=== PATIENT | male | born 1985 | race African-American/Black ===

== ENCOUNTER 2016-04-25 11:00 | Emergency (ER) | payer MEDICAID ==
[~2016-04-25] VITALS: Ht 180.3 cm; Wt 72.6 kg
[2016-04-25 11:40] LABS: Basophils # (auto) 0 uL; Basophils % (auto) 0.1 % (0.0-2.0); Eosinophils # (auto) 0 uL; Hematocrit 48.5 % (41.0-53.0); Lymphocytes # (auto) 0.4 uL; Lymphocytes % (auto) 3.5 % (10.0-50.0); Mean Corpuscular Hgb Conc. 32.9 g/dL (32.0-36.0); Mean Corpuscular Volume 91.1 fL (80.0-100.0); Mean Platelet Volume 7.9 fL (7.4-10.4); Monocytes # (auto) 0.2 uL; Neutrophils # (auto) 11.1 uL; Neutrophils % (auto) 94.4 % (37.0-80.0); Platelet Count (auto) 306 10^3/uL (140-450); Red Cell Distribution Width 14.1 % (11.6-16.0); White Blood Cell 11.7 10^3/uL (4.4-10.8)
[2016-04-25] MEDS ORDERED: MORPHINE SULFATE 4 MG/ML SYRG IV ONE (11:45)
[2016-04-25] MEDS ORDERED: ONDANSETRON HCL 4 MG/2 ML VIAL IV ONE (11:45)
[2016-04-25] MEDS ORDERED: LEVETIRACETAM INJ 1,000 MG in SODIUM CHL 0.9% 100 ML IV ONE (11:45)
[2016-04-25 12:07] LABS: Albumin 4.3 g/dL (3.4-5.0); Bilirubin, Total 1.1 mg/dL (0.2-1.0); Calcium 9.3 mg/dL (8.5-10.1); Potassium 4.4 mmol/L (3.5-5.1); Total Protein 8.4 g/dL (6.4-8.2)
[2016-04-25 14:32] VITALS: BP 105/69
== END 2016-04-25 14:43 | disposition home or self-care (01) ==
LOC: EDBD 11:00 → ER 11:08
DX: G40.909 Epilepsy, unspecified, not intractable, without status epilepticus (principal); R51 Headache; R42 Dizziness and giddiness; R53.1 Weakness; F12.10 Cannabis abuse, uncomplicated
CPT/HCPCS: 36415; 80053; 85025; 85049; 94761; 96365; 96375; 99284; J1953; J2270; J2405